=== PATIENT | male | born 1950 | race Caucasian/White ===

== ENCOUNTER → 2017-01-29 | Outpatient (CLI) | payer MEDICARE, BC ==
[~2017-01-29] MED LIST: 00186-0370-20 IH; ACTOS 15MG TAB15 MG PO; CLEOCIN HC150 MG/CAP PO; CYMBALTA 60MG60 MG PO; D3; FOLIC ACID 11 MG/TA1 PO; GLUCOPHAGE1000 MG PO; LEXAPRO 10MG10 MG PO; LOFIBRA134 MG PO; NEURONTIN300 MG/CAP PO; NORVASC 5MG5 MG/TAB PO; PREDNISONE10 MG PO; PRILOSEC 20MG20 MG PO; PROVENTIL0.09 MG/A1 IH; RT SPIRIVA18 MCG IH; SINGULAIR 110 MG/TAB PO; WELCHOL 625MG625 MG PO; ZESTRIL 20MG TA20 MG PO; ZETONNA
== END ==
LOC: COL.PUL 09:11
DX: J44.9 Chronic obstructive pulmonary disease, unspecified (principal); Z87.891 Personal history of nicotine dependence

== ENCOUNTER → 2017-03-22 | Outpatient (CLI) | payer MEDICARE, BC | LOC: COL.PUL 11:28 | DX: J44.9 Chronic obstructive pulmonary disease, unspecified (principal); Z87.891 Personal history of nicotine dependence ==